=== PATIENT | female | born 2005 | race Caucasian/White ===

== ENCOUNTER 2025-07-14 17:07 | Outpatient (CLI) | payer BC, SELFPAY ==
--- OUTSIDE RECORDS SUMMARY | 2024-07-24 08:30 | XMS_ITS ---
Author Organization [facility] Address [address] [facility] [address] [place] [address] Care Team Providers Care Professor Of Floriculture Name Role Phone AnnRikkiFaviola Unavailable [phone] Results Component Value Reference Range Notes *US Pelvis Complete Transabd ominal/Vaginal (Non-OB) Reviewed date:07/25/2024 12:03:28 PM Interpretation: Performing Lab: Notes/Report: [facility] Transvaginal Pelvic Study Report Name: MELANI YEPEZ Accession/Encounter No:[id number] : 2005 Age: 18 Gender: F Race: White Study Date: Jul 24, 2024 Study Time: 01:17 PM Reading Group: Roslyn Mckeon MD Referring Group: Faviola Juarez APRN Ordering Phys: Faviola Juarez APRN Booking Officer: Jessica Lima RDMS Equipment: Affiniti 30 Study Quality: Good Procedure Code: [id number] - *US Pelvis Complete Transabdominal /Vaginal (Non-OB) Indications: Evaluation of dysmenorrhea (painful menses). AUB Risk Factors: IUCD A complete pelvic transvaginal ultrasound was performed. Sag AP Trans Volume cm cm cm ml Uterus 6.06 3.39 4.28 46.04 Right ovary: 2.68 1.66 2.77 6.45 Left ovary: 2.07 2.81 2.12 6.46 Endometrium thickness: 4.5 mm Findings: A transvaginal exam was performed. The uterus is anteverted. The uterus is 6.06 x 3.39 x 4.28 cm, with volume of 46.04 ml. The endometrium measures 4.5 mm. The endometrium appears WNL and normal. The myometrium appears homogeneous. IUD is visualized. Centrally located IUD. Unremarkable right ovary measures 2.68 x 1.66 x 2.77 cm, volume 6.45 ml. Unremarkable left ovary measures 2.07 x 2.81 x 2.12 cm, volume 6.46 ml . The cervix is 1.32 cm long. Conclusions: Uterus and ovaries appear normal. No free fluid or adnexal masses noted IUCD in situ Approved By: Roslyn Mckeon MD Approved at: July 25, 2024 12:01 PM EST Electronically Signed on Studycast MELANI YEPEZ 2024-07-24 Page 1 of 1 Imaging Center - , COUNTS INCLUDE 234 BEDS AT [facility] REASON FOR VISIT Transabdominal US? has had an IUCD.. severe cramping and heavy bleeding Encounters Encounter Location Date Provider Diagnosis [facility] [address] [facility] [address] [place] [address] 07/24/2024 Faviola Juarez Dysmenorrhea N94.6 Assessments Encounter Date Diagnosis (ICD Code) Assessment Notes Treatment Notes Treatment Clinical Notes Section Notes 07/24/2024 Dysmenorrhea (ICD-10 - N94.6) Plan Of Treatment Next Appt Details Provider Name:Roslyn Mckeon , 09/16/2025 11:15:00 AM, [address], [place], [address], Progress Notes * Melani YEPEZ ODOB:[birth year] (19 yo F)Acc No.[id number]:07/24/2024 Progress Note Patient: Melani Wasserman Provider: Yuni Juarez APRN :2005 A ge:18 Y S ex:Female Date:07/24/2024 Address:[address] [place] [address] Subjective: * Chief Complaints: * T ransabdominal US? has had an IUCD.. severe cramping and heavy bleeding Assessment: * Assessment: 1. D ysmenorrhea - N94.6 (Primary) Plan: * Treatment: Billing Information: * Procedure Codes: * Electronic signature of Kena Juarez APRN on 07/14/2025 at 05:11 PM EST Sign off status: Pending Visit Status: C HK (Check Out) * Provider: Yuni Juarez APRN Date: 09/23/2023 Generated for Sydni arndt/Kimo/eTransmitting on: 09/13/2024 05:11 PM EST
--- OUTSIDE RECORDS SUMMARY | 2024-09-08 08:15 | XMS_ITS ---
Author Organization [facility] Address [address] [place] [address] Care Team Providers Care Lease Examiner Name Role Phone AnnFaviola sands Unavailable [phone] Roslyn Mckeon Unavailable [phone] REASON FOR VISIT endo consult Encounters Encounter Location Date Provider Diagnosis [facility] [address] [facility] [address] [place] [address] 09/08/2024 Roslyn Mckeon Plan Of Treatment Next Appt Details Provider Name:Roslyn Mike , 09/16/2025 11:15:00 AM, [address], [place], [address], Progress Notes * Kayla YEPEZ ODOB:[birth year] (19 yo F)Acc No.[id number]:09/08/2024 Patient: Kayla Wasserman O Provider: Kathy Mckeon MD :2005 A ge:19 Y S ex:Female Date:09/08/2024 Address[address] [facility] Subjective: * Chief Complaints: * E ndo consult * Electronic signature of Tran Mckeon MD on 07/14/2025 at 05:11 PM EST Sign off status: Pending Visit Status: R /S (Rescheduled) * Provider: Kathy Mckeon MD Date: 0 09/08/2024 Generated for Sydni arndt/Kimo/Jazmín on: 1 09/13/2024 05:11 PM EST
--- OUTSIDE RECORDS SUMMARY | 2024-11-28 03:00 | XMS_ITS ---
Author Organization [facility] Address [address] [place] [address] Care Team Providers Care Watch Technician Name Role Phone Faviola Juarez Unavailable [phone] Roslyn Mckeon Unavailable [phone] REASON FOR VISIT HYATA HERRERA Medications Medication SIG (Take, Route, Frequency, Duration) Notes Start Date End Date Status Kyleena 19.5 MG Intrauterine Device as directed Intrauterine Active Ibuprofen 600 MG Tablet One tablet po ev constantine every 6 hours; Duration: 5 days Active Percocet 5-325 MG Tablet One tablet po E very 4 hours; Duration: 3 days 11/28/2024 Active Wellbutrin XL 150 MG Tablet Extended Release 24 Hour 1 tablet in the morning Orally Once a day Active Encounters Encounter Location Date Provider Diagnosis [facility] [address] [place] [address] 11/28/2024 Roslyn Mckeon Postoperative pain G89.18 Assessments Encounter Date Diagnosis (ICD Code) Assessment Notes Treatment Notes Treatment Clinical Notes Section Notes 11/28/2024 Postoperative pain (ICD-10 - G89.18) Plan Of Treatment Medication Medication Name Sig Start Date Stop Date Notes Ibuprofen 600 MG Tablet One tablet po ev constantine every 6 hours; Duration: 5 days Percocet 5-325 MG Tablet One tablet po E very 4 hours; Duration: 3 days 11/28/2024 Next Appt Details Provider Name:Roslyn Mckeon , 09/16/2025 11:15:00 AM, [address], [address], [address], Progress Notes * Kayla YEPEZ ODOB:[birth year] (19 yo F)Acc No.[id number]:11/28/2024 Patient: Kayla Wasserman O Provider: Kathy Mckeon MD :2005 A ge:19 Y S ex:Female Date:11/28/2024 [facility] Subjective: * Chief Complaints: * H YST DANDC, DX LAP * Medications: T akingKyleena(Levonorgestrel) 19.5 MG Intrauterine Device as directed Intrauterine Wellbutrin XL(buPROPion HCl ER (XL)) 150 MG Tablet Extended Release 24 Hour 1 tablet in the morning Orally Once a day Taking Kyleena(Levonorgestrel) 19.5 MG Intrauterine Device as directed Intrauterine Taking Wellbutrin XL(buPROPion HCl ER (XL)) 150 MG Tablet Extended Release 24 Hour 1 tablet in the morning Orally Once a day Assessment: * Assessment: 1. P ostoperative pain - G89.18 (Primary) Plan: * Treatment: Billing Information: * Procedure Codes: * Electronic signature of Tran Mckeon MD on 07/14/2025 at 05:11 PM EST Sign off status: Pending Visit Status: C HK (Check Out) * Provider: Kathy Mckeon MD Date: 0 11/28/2024 Generated for Sydni arndt/Kimo/Sanamitting on: 09/13/2024 05:11 PM EST
--- OUTSIDE RECORDS SUMMARY | 2025-04-20 05:15 | XMS_ITS ---
Author Organization [facility] Address [address] [place] [address] Care Team Providers Care Block Greaser Name Role Phone Faviola Juarez Unavailable [phone] Roslyn Mckeon Unavailable [phone] REASON FOR VISIT follow up from 12/10 Encounters Encounter Location Date Provider Diagnosis [facility] [address] [facility] [address] [place] [address] 04/20/2025 Roslyn Mckeon Plan Of Treatment Next Appt Details Provider Name:Roslyn Mike , 09/16/2025 11:15:00 AM, [address], [address], [place], [address], Progress Notes * Kayla YEPEZ ODOB:[birth year] (19 yo F)Acc No.[id number]:04/20/2025 Progress Note Patient: Kayla Wasserman O Provider: Kathy Mckeon MD :2005 A ge:19 Y S ex:Female Date:04/20/2025 Address:[address] [facility] Subjective: * Chief Complaints: * F ollow up from 12/10 * Electronic signature of Tran Mckeon MD on 07/14/2025 at 05:10 PM EST Sign off status: Pending Visit Status: R /S (Rescheduled) * Provider: Kathy Mckeon MD Date: 0 04/20/2025 Generated for Sydni Hayes/Jazmín on: 1 09/13/2024 05:10 PM EST
--- OUTSIDE RECORDS SUMMARY | 2025-05-04 07:45 | XMS_ITS ---
Author Organization [facility] Address [facility] [address] [place] [address] Care Team Providers Care Top Waddy Name Role Phone Barbara Concepcion [phone] REASON FOR VISIT Not Feeling Well Encounters Encounter Location Date Provider Diagnosis [address] [address] 05/04/2025 Barbara Concepcion Plan Of Treatment No Information Progress Notes * Kayla YEPEZDOB: [birth year] (19 yo F)Acc No.[id number]:05/04/2025 Patient: Kayla FIGUEROA Provider: Yuni Concepcion APRN :2005 A ge:19 Y S ex:Female Date:05/04/2025 External Visit ID:[id number] [facility] Subjective: * Chief Complaints: * 1 . Not Feeling Well. * Medical History: Objective: * Vitals: Assessment: Plan: * Treatment: * Billing Information: * Visit Code: * Procedure Codes: Care Plan Details* * Electronic signature of Barbara Concepcion on 07/14/2025 at 04:11 PM HAIR CLIPPER POWER Sign off status: Pending * Provider: Yuni Concepcion APRN Date: 0 05/04/2025 Generated for Sydni arndt/Kimo/Sanamitting on: 09/13/2024 04:11 PM HAIR CLIP[employer]
--- OUTSIDE RECORDS SUMMARY | 2025-07-14 17:10 | XMS_ITS | Data Portability ---
Author Organization [facility] ELENA Rodriguez [place] Address [address] [place] [address] Care Team Providers Care Rebrander Name Role Phone BUNNY MCFARLANE Primary Care Provider [phone] Assessment No assessment recorded. Plan of Treatment Reminders Order Date Submit Date Provider Last Modified By Organization Details Last Modified Time Details Appointments None recorded. Lab influenza virus A+B RNA, TORIN+probe, isolate 2024 025 count includes the [facility], [address], [place], [address], 5 17:03:22 Referral gastroenter ologist referral 2024 025 [email or web address] Not available 07:57:25 Procedures None recorded. Surgeries None recorded. Imaging None recorded. Medication Orders fluoxetine 20 mg capsule 2024 025 [facility] 7259 - [facility], [address], [place], [address], 5 10:02:45 fluoxetine 10 mg tablet 2024 025 [facility] 7259 - [facility], [address], [place], [address], 5 10:02:47 hydroxyzine HCl 25 mg tablet 2024 025 PEÑA [facility] 72 - [facility], [address], [place], [address], 5 10:02:53 fluoxetine 20 mg capsule 2024 025 [place] [address] - [facility], [address], [place], [address], 5 10:40:48 buspirone 10 mg tablet 2024 025 [place] [address] - [facility], [address], [place], [address], 5 10:19:31 fluoxetine 10 mg tablet 2024 025 [facility] 72 - [facility], [address], [place], [address], 5 13:22:24 Xofluza 80 mg tablet 2024 025 [place] [address] - [facility], [address], [place], [address], 5 12:56:12 Wellbutrin XL 150 mg 24 hr tablet, extended release 2023 024 [email or web address] [facility] 7259 - [facility], [address], [place], [address], 5 10:01:25 Patient TargetsNo targets recorded. Patient Instructions Encounter Date Encounter Id Patient Instructions Last Modified By Organization Details Last Modified Time 02/26/2025 [id number] pedi. imm. 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 Gastro-esophageal reflux disease with esophagitis Referring Physician: Bunny Mcfarlane, Pediatric Medicine, Encounter Date: 03/27/2025 Results Created Date Observation Date Name Description Value Unit Range Abnormal Flag Note LastModifiedBy Organization Detail LastModifiedTime 10/03/19 25 10/03/2024 influ ronit virus A+B RNA, TORIN+p robe, isola te Influenza A POSITI VE (Abnor mal) Not Available [facility] [address], [place], [address], 10/03/2024 16:59:50 10/03/19 25 10/03/2024 influ ronit virus A+B RNA, TORIN+p robe, isola te Influenza B Negati ve Not Available [facility] [address], [place], [address], 10/03/2024 16:59:50 10/03/19 25 10/03/2024 influ ronit virus A+B RNA, TORIN+p robe, isola te Procedural Control Valid Not Available [facility] [address], [place], [address], 10/03/2024 16:59:50 02/27/20 25 02/26/2025 pedi. imm. couns el - 2+* Unknown Analyte 3 Not Available [facility] [address], [place], [address], 02/26/2025 10:42:02 Result Notes None recorded. Problems No Known Problems Procedures Surgical History Date Name Laterality Status Provider Name and Address Organization Details Recorded Time 10/02 Tympanogram completed FREEDOM LOGAN, AUD [address] [place], [address] , [facility] 15:32:31 10/02 Audiogram completed FREEDOM LOGAN AUD [address] [place], [address] , [facility] 3 15:32:30 Ears/Nose/Throat Surgery completed Marimar Leija [facility] 3 14:50:40 esophagogastroduodenoscopy completed Marimar [facility] 3 14:51:16 Ear Tube completed Not Available [employer] 5 09:54:13 Imaging Results None recorded. Procedure Notes None recorded. Medical Equipment None Reported. Allergies Allergen ID Allergen Name Allergen Category Reaction Reaction Severity Criticality Documentation Date Start Date Code Code System Note Provider Name and Address Organization Details Recorded Time 406831 Product containin g penicilli n (product) medicatio n Not available Not available Not available 07/28/20162012 12594 8001 SNOMED Comme nt: Creat ed By: Venkata callaway Sean is;Cr eated Date: 2012 10:55 :42 AM; Not Available [facility] 6 09:19:04 [id number] buspirone medicatio n rash mild low 02/27/20252024 1827 [facility] 5 10:12:30 Medications Name Sig Start Date Stop Date Status Note LastModified by Organization Details LastModified Time fluoxetine 10 mg tablet Take 1 tablet every day by oral route for 30 days. 2024 active Not Available Not Available Not Avai lable oseltamivir 75 mg capsule Take 1 capsule twice a day by oral route for 5 days. 01/27 completed Not Available Not Available Not Available buspirone 10 mg tablet Take 1 tablet twice a day by oral route for 30 days. 02/27 completed Not Available Not Available Not Available hydroxyzine HCl 25 mg tablet Take 1 tablet every day by oral route at bedtime for 30 days. 2024 active Not Available Not Available Not Avai lable cefdinir 300 mg capsule Take 1 capsule twice a day by oral route for 10 days. 07/15 completed Not Available Not Available Not Available fluoxetine 20 mg capsule Take 1 capsule every day by oral route for 30 days. 2024 active Not Available Not Available Not Avai lable bupropion HCl XL 150 mg 24 hr tablet, extended release Take 1 tablet by mouth once daily 02/26 completed Not Available Not Available Not Available Wellbutrin XL 300 mg 24 hr tablet, extended release Take 1 tablet every day by oral route. 05/27 completed Not Available Not Available Not Available Xofluza 80 mg tablet Take 1 tablet every day by oral route for 1 day. 01/27 completed Not Available Not Available Not Available Vitals Date Recorded Body weight Body temperature Provider N steve and Address Organization Details Last Updated DateTime 10/03/2024 39840.83 g 97.9 [degF] Yu Rowley [facility] 10/03/2024 16:34:44 Date Recorded Body weight Provider Name an d Address Organization Details Last Updated DateTime 01/27/2025 32951.52 g Candy Nixon [facility] 01/27/2025 12:56:11 Date Recorded Body height Body mass index (BMI) Body mass index (BMI) [Percentile] Per age and sex Body weight Heart rate Systolic And Diastolic Provider Name and Address Organization Details Last Updated DateTime 167.64 cm 29 kg/m2 91 % 59766.1 9 g 72 /min 114/72 mm[Hg] Aniyah May [facility] 10:00:43 Date Recorded Body height Body mass index (BMI) Body mass index (BMI) [Percentile] Per age and sex Body weight Body temperature Provider Name and Address Organization Details Last Updated DateTime 167.64 cm 28.5 kg/m2 90 % 26897.0 5 g 98 [degF] Jami Byrd [facility] 09:42:47 Date Recorded Body weight Provider Name an d Address Organization Details Last Updated DateTime 07/15/2024 65293.71 g Александр Workman [facility] Cli gabriela 07/15/2024 10:44:29 Social History Question Answer Notes LastModified by Organizat ion Details LastModified Time Tobacco Smoking Status Never Smoker Mraimar Leija [facility] 10/02/2022 14:50:19 What Was The Date Of Your Most Recent Tobacco Screening? 10/02/2022 Information not available 10/02/2022 Sex: Unknown Functional Status Question Answer Note LastModified by Organizat ion Details LastModified Time Do you use any illicit or recreational drugs? No Information not available 10/02/2022 Do you or have you ever used any other forms of tobacco or nicotine? No Information not available 10/02/2022 What is your level of alcohol consumption? None Information not available 10/02/2022 Mental Status None recorded. Family History Relationship Description Onset Age of this Age Resolved Age Notes LastModified by Organization Details LastModified Time Mother Disorder of thyroid gland API-27 Not available 2024 09:54:13 Father Hypertensive disorder Not available 2022 14:49:47 Brother Asthma Not available 0 10/02/2022 14:50:11 Medical History Condition Response Anxiety Disorder Y Depression Y Gynecological History Statement/Question Response Menses Monthly Y Date of First period 06/14/2015 Abnormal Periods N Obstetrics History GPAL:G 0 P 0 0 0 0 Immunizations Vaccine Type Date Status Note Provider Nam e and Address Organization Details Recorded Time HPV9 7 completed Aniyah May [facility] 02/26/2025 10:03:48 HPV9 6 completed Aniyah May [facility] 02/26/2025 10:03:48 IPV 8 completed Aniyahmitali May [facility] 02/26/2025 10:03:48 MMR 6 completed Aniyahmitali May [facility] 02/26/2025 10:03:48 MMR 8 completed Aniyah May [facility] 02/26/2025 10:03:48 COVID-19, mRNA, LNP-S, PF, 30 mcg/0.3 mL dose 1 completed Aniyah May [facility] 02/26/2025 10:03:48 COVID-19, mRNA, LNP-S, PF, 30 mcg/0.3 mL dose 1 completed Naiyahmitali May [facility] 02/26/2025 10:03:48 pneumococcal conjugate PCV 7 5 completed Aniyah May [facility] 02/26/2025 10:03:48 pneumococcal conjugate PCV 7 5 completed Aniyah May [facility] 02/26/2025 10:03:48 pneumococcal conjugate PCV 7 5 [facility] 10:03:48 pneumococcal conjugate PCV 7 5 completed Aniyah Lalo [facility] 02/26/2025 10:03:48 influenza, unspecified formulation 3 completed Aniyah Lalo [facility] 02/26/2025 10:03:48 influenza, unspecified formulation 1 completed Aniyah Lalo [facility] 02/26/2025 10:03:48 influenza, unspecified formulation 2 completed Aniyah May [facility] 02/26/2025 10:03:48 influenza, unspecified formulation 5 completed [facility] 02/26/2025 10:03:48 influenza, unspecified formulation 3 completed Aniyah Lalo [facility] 02/26/2025 10:03:48 influenza, unspecified formulation 5 completed [facility] 02/26/2025 10:03:48 influenza, unspecified formulation 6 completed [facility] 02/26/2025 10:03:48 influenza, unspecified formulation 7 completed [facility] 02/26/2025 10:03:48 influenza, unspecified formulation 4 completed [facility] 02/26/2025 10:03:48 influenza, unspecified formulation 5 completed [facility] 02/26/2025 10:03:48 influenza, unspecified formulation 8 completed Aniyahmitali May [facility] 02/26/2025 10:03:48 influenza, unspecified formulation 6 completed Aniyahmitali May [facility] 02/26/2025 10:03:48 influenza, unspecified formulation 9 completed Aniyahmitali May [facility] 02/26/2025 10:03:48 Tdap 5 completed Aniyah May [facility] 02/26/2025 10:03:48 varicella 5 completed Aniyahmitali May [facility] 02/26/2025 10:03:48 varicella 8 completed Aniyahmitali May [facility] 02/26/2025 10:03:48 Hep B, unspecified formulation 4 completed Aniyah May [facility] 02/26/2025 10:03:48 Hib (PRP-OMP) 6 completed Aniyahmitali May [facility] 02/26/2025 10:03:48 Hib (PRP-OMP) 5 completed Aniyahmitali May [facility] 02/26/2025 10:03:48 Hib (PRP-OMP) 5 completed Aniyahmitali May [facility] 02/26/2025 10:03:48 Hib (PRP-T) 5 completed Aniyah May [facility] 02/26/2025 10:03:48 Meningococcal MCV4O 0 completed Aniyahmitali May [facility] 02/26/2025 10:03:48 Meningococcal MCV4O 5 completed Aniyahmitali May [facility] 02/26/2025 10:03:48 DTaP, unspecified formulation 6 completed Aniyahmitali May [facility] 02/26/2025 10:03:48 DTaP, unspecified formulation 8 completed Aniyahmitali May [facility] 02/26/2025 10:03:48 DTaP-Hep B-IPV 5 completed Aniyah May null, [facility] 02/26/2025 10:03:48 DTaP-Hep B-IPV 5 completed Aniyah May null, [facility] 02/26/2025 10:03:48 DTaP-Hep B-IPV 5 completed Aniyah May null, [facility] 02/26/2025 10:03:48 Influenza, split virus, quadrivalent, PF 8 completed Aniyah May null, [facility] 02/26/2025 10:03:48 Influenza, split virus, quadrivalent, PF 7 completed Aniyah May null, [facility] 02/26/2025 10:03:48 Influenza, split virus, quadrivalent, PF 2 [facility] 02/[facility]25 10:03:48 Influenza, split virus, quadrivalent, PF 9 completed Aniyah May null, [facility] 02/26/2025 10:03:48 Influenza, split virus, quadrivalent, PF 0 completed Aniyah May null, [facility] 02/26/2025 10:03:48 Influenza, split virus, quadrivalent, PF 1 completed Aniyah May null, [facility] 02/26/2025 10:03:49 Hep A, unspecified formulation 6 completed [facility] 02/26/2025 10:03:49 Hep A, unspecified formulation 6 completed Aniyah May null, [facility] 02/26/2025 10:03:49 Influenza, split virus, quadrivalent, PF 4 completed Aniyah May null, [facility] 02/26/2025 10:04:07 Influenza, split virus, trivalent, PF 4 completed BUNNY MCFARLANE MD [address] [place] [address], [phone], [facility] 05/27/2024 17:08:24 Tdap 5 completed Elan Llamas [facility] 02/26/2025 10:41:15 Past Encounters Encounter ID Performer Location Encounter Start Date Encounter Closed Date Diagnosis/Indication Diagnosis SNOMED-CT Code Diagnosis ICD10 Code Diagnosis IMO Codes Diagnosis Note [id number] FREEDOM IVEYMARIA DOLORES LOGAN, AUD [facility] [address] [place] [address] 10/02/2022 14:25:12 10/02/2022 15:53:33 Bilateral tinnitus 4372014444 102 H93.13 Sensorineu ral hearing loss of bilateral ears 249402899 H90.3 [id number] YING DAY, CAR REPOSSESSOR [facility] [address] [place] [address] 10/02/2022 15:02:55 10/09/2022 15:42:15 Hearing examination 465611333 Z01.10 10/02/2022- Audiogram results reviewed. Type A tymps bilaterall y with 100% WDS. Bilateral tympanosclerosis 5294862543 7181273 H74.03 10/02/2022- Slightly worse on the left. Deviated nasal septum 12 8898758 J34.2 [id number] YA BUTLER III, MD [facility] [address] [place] [address] 10/02/2022 15:57:47 10/02/2022 16:46:51 Hearing examination 280275533 Z01.10 10/02/2022- Audiogram results reviewed. Type A tymps bilaterall y with 100% WDS. Bilateral tympanosclerosis 0182091338 4553663 H74.03 10/02/2022- Slightly worse on the left. Deviated nasal septum 12 9996999 J34.2 [id number] BUNNY MCFARLANE MD [facility] [address] [place] [address] 05/27/2024 13:58:51 05/27/2024 14:20:07 Active immunization 51577976 Z23 Acute righ t otitis media 586560170 H66.91 Otitis media (ear infection) 1. Tylenol or Ibuprofen (the latter only if the patient is at least 6 months old) as directed prn for pain. 2. Call if worsens or if not cleared up after antibiotic s. Acute uppe r respiratory infection 09686126 J06.9 1. Discussed upper respirator y infection symptoms 2. Discussed supportive care 3. Call if worsens [id number] BUNNY MCFARLANE MD [address] [employer],[address] [address] 07/15/2024 10:41:08 07/15/2024 11:02:01 Allergic rhinitis caused by animal hair and dander 1515341795 52000 J30.81 Discussed: secondary to the cat living in her apartment. I recommende d that Kayla move out of her apartment for medical/he alth reasons due to allergy symptoms. She needs to be released from her lease. Anxiety 39653175 F41.9 1. Discussed anxiety 2. Recommende d counseling - numbers provided 3. RAS-7 reviewed 4. Discussed medication and side effects 5. Discussed the risk of suicidal ideations with the prescribed and related medication s 6. Advised to call for concerns, evelia. if not better in 2 weeks Depressive disorder 2897 9007 F32.A 1. PHQ-9 reviewed and depression discussed2 . Discussed medication including the chance for suicidal ideations with it and similar ones3. Denies suicidal ideations4 . Discussed follow up appointmen ts5. Discussed counseling 6. Call for concerns, evelia. if not better in 2 weeks [id number] BUNNY MCFARLANE MD [facility] [address] [facility],[address] [address] 10/03/2024 16:29:11 10/03/2024 17:04:06 Influenza caused by Influenza A virus 699816055 J09.X2 Tylenol or Ibuprofen (if at least 6 months of age) as directed. Plenty of rest and fluids. RTC PRN worsening. [id number] BUNNY MCFARLANE MD [facility] [address] [facility],[address] [address] 01/27/2025 12:48:48 01/27/2025 13:22:37 Anxiety 96139991 F41.9 42097 1. Discussed anxiety 2. Recommende d counseling : she is isolating herself ad is afraid to eat for fear of vomiting. SHe estimates only eating 700 kcal a day. 3. RAS-7 reviewed 4. Discussed medication and side effects 5. Discussed the risk of suicidal ideations with the prescribed and related medication s 6. Advised to call for concerns. 7. Recheck in a month. [id number] [facility] [address] [facility] [address] [place] [address] 02/26/2025 09:54:12 02/26/2025 10:38:35 General examination of patient 228541419 Z00.00 [id number] 1. Discussed age appropriat e issues and reviewed immunizati ons2. Discussed high school/col lege/adult issues3. Follow up yearly for well visits4. PHQ-4 reviewed Anxiety 16504727 F41.9 42553 1. Discussed anxiety 2. Recommende d counseling : she is isolating herself ad is afraid to eat for fear of vomiting. She knows that this is an irrational fear. 3. RAS-7 reviewed 4. Discussed medication and side effects, incl. risk of serotonin syndrome /c Buspirone added. Will start /c a lower dose of this. 5. Discussed the risk of suicidal ideations with the prescribed and related medication s 6. Advised to call for concerns. 7. Recheck in a month. Abnormal weight loss 267 704392 R63.4 [id number] Discussed continuing counseling for this. [id number] MD [facility] [address] [facility] [address] [place] [address] 03/27/2025 09:38:13 03/27/2025 09:58:11 Anxiety 76359938 F41.9 08966 1. Discussed anxiety 2. RAS-7 reviewed 3. Discussed medication and side effects: she sweats a lot /c the Fluoxetine but is OK /c this. 4. Discussed the risk of suicidal ideations with the prescribed and related medication s 5. RTC 6 months Gastro-eso phageal reflux disease with esophagitis 766829147 K21.00 [id number] Cont. current care. Will refer back to Dr. Gasca. Health Concerns Section Related Observation LastModified by Organization Detai ls LastModified Time None Recorded Concern Status LastModified by Organization Details LastModified Time None Recorded Advance Directives Directive None Recorded Payers Insurance Date Sequence Insurance Name Policy Number Policy Lozada Covered Member ID Lozada Member ID Guarantor Name 04/01/2025 1 [facility] ([facility] [id number] A Ernesto Sharma [id number] Kayla Sharma Notes Date Note Type Note Provider Name and Address Organization Details Recorded Time 07/15/2024 text/html ROS as noted in the HPI RecheckConcerns: Cat allergy , anxiety , depression patient would like to restart wellbutrin REPORTED BY: self RELATIONSHIP:scale 12 Pt is in an apartment with 2 other roommates. She is in college. One of her roommates insisted on bringing her cat to live with them despite the Pt being (and having tested) allergic to cats. Since the cat has been in the apartment with them Kayla has had swelling and redness of her eyes in the morning, chronic nasal congestion, and a chronic cough. SShe has been on multiple mediations for this including Claritin, Benadryl Allergy, and Flonase, but they are not helping her symptoms. Kayla has also had increased anxiety and depression, which her cat allergy symptoms are no doubt exacerbating. She would like to go back on Wellbutrin. BUNNY MCFARLANE MD [address] [place] [address], [phone], [facility] 07/15/2024 17:31:32 10/03/2024 text/html ROS as noted in the HPI REPORTED BY: ernesto RELATIONSHIP: dad pt reports yesterday she started with body aches, chills, BROWN, congestion, wet cough. 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 Afebrile. 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 She started worrying about her food getting contaminated so she stopped eating at work sometime after her last visit. The Wellbutrin XL 150 mg QD that she was taking would make her sick to her stomach and she had trouble eating /c it. SHe became afraid that she would vomit if she ate in public. SHe is worried about how much weight she has lost and doesn't want to lose anymore. He counselor from [facility] left and she hasn't found another one. BUNNY MCFARLANE MD [address] [place], [address], [facility] 01/27/2025 17:11:33 02/26/2025 text/html ROS as noted in the HPI 19 year cpx/med recheckconcerns: would like to talk about increasing dosage or adding another med for OCD and anxiety, prozac is working well for her depression. Has trouble sleeping or staying asleep with prozacIs your child entering kindergarten, 6th grade or will your child be attending a new school? NOWill your child play sports for a middle school or high school? NODo you need an immunization certificate? NOWould you like any medications refilled? NODoes our child have a dental home? YESDo you consider your child in good health? Yes Does your child have a serious illness or medical condition? No Has your child had serious injuries or accidents? No Has your child had surgery of any kind? Yes Has your child ever been hospitalized overnight? No Is our child allergic to any medicines or drugs? Yes Reported by: selfRelation: self Well Visit ROSDo you consider your child to be in good health? Yes Does your child have a serious illness or medical condition? No Has your child ever been hospitalized overnight? No Has your child had a serious injury or accident? No Imported from [employer] on 02/26/2025 Pt feels much better from a depression standpoint but is still very anxious about vomiting. She started seeing a counselor for this. She would like something in addition for anxiety. Losing some hair. Trying to eat more protein. She does not want to work out until her weight stabilizes. She tries to only eat every 6 hours. BUNNY MCFARLANE MD [address] [place], [address], [facility] 02/26/2025 17:03:13 03/27/2025 text/html ROS as noted in the HPI Med checkPt takes fluoxetine 10mg + 20mg for a total of 30mg qd.Doing well, no issuesAlso takes hydroxyzine 25mg qhs. Often just takes 1/2 tablet.Needs refills for future.Also started taking 20mg omeprazole to help with reflux and it's helping. Needs new GI referral, has been to long since pt last saw her GI as she is new patient .Filled out RAS-7 in house. Reported by : Self Pt is doing well on total of 30 mg Fluoxetine a day. She denies any suicidal ideations. Her swallowing problems have improved dramatically on Omeprazole 20 mg QD. She would like to see Chivo Gasca again for her GERD. Her dad has it as well. SHe talked to her counselor about meal prep, so she is eating better. Workign out at the gym and is trying to build muscle. BUNNY MCFARLANE MD [facility] [place], [address], [facility] 03/27/2025 17:30:27 OBGyn Episode No OBEpisode recorded.
--- OUTSIDE RECORDS SUMMARY | 2025-07-14 17:10 | XMS_ITS | Data Portability ---
Author Organization [facility] AD[facility] Address [address] [place] [address] Care Team Providers Care Courier Name Role Phone IGLESIA MCFARLANE Primary Care Provider Assessment Encounter Date Assessment Date Assessment LastModified by Organization Details LastModified Time 06/29/2022 06/29/2022 16-year-old female with nausea, vomiting, and loose BMs for the past 3 days, likely due to viral gastroenteriti s. Recommended she maintain good oral hydration and practice good hand hygeine. Will treat her nausea with Zofran as needed. Instructed them to call if her symptoms due not subside after 7-10 days. [email or web address] Not available 06/29/2022 12:25:03 Plan of Treatment Reminders Order Date Submit Date Provider Last Modified By Organization Details Last Modified Time Details Appointments None recorded. Lab None recorded. Referral None recorded. Procedures None recorded. Surgeries None recorded. Imaging None recorded. Medication Orders ondansetron 4 mg disintegrat ing tablet 2021 022 [facility] - [facility], [address] [place], [address], 12:22:17 Patient TargetsNo targets recorded. Patient InstructionsNo instructions recorded. Reason for Referral None Reported. Problems Name Problem SNOMED Code Status Onset Date Resolution Date Notes Provider Name and Address Organization Details Recorded Time Acute gastroenteriti s 09339093 Active 2021 Giuseppe Hale PA-C [address], [place], [address] , [facility] & [place] 12:20:31 Abdominal pain 94432079 Active 2021 Giuseppe Hale PA-C [address] [facility], [place], [address] , [facility] & [place] 12:20:36 Problem Notes None recorded. Medical Equipment None Reported. Medications Name Sig Start Date Stop Date Status Note LastModified by Organization Details LastModified Time ondansetron 4 mg disintegrating tablet Take 1 tablet every 6 hours as needed for nausea active Not Available Not Available No t Available escitalopram 10 mg tablet TAKE 1 TABLET BY MOUTH ONCE DAILY active Not Available Not Available No t Available Lo Loestrin Fe 1 mg-10 mcg (24)/10 mcg (2) tablet TAKE 1 TABLET BY MOUTH ONCE DAILY active Not Available Not Available No t Available Vitals Date Recorded Heart rate Systolic And Diastolic Provider Name and Address Organization Details Last Updated DateTime 06/29/2022 104 /min 151/107 mm[Hg] Ryanne Calderon [facility] & [place] 06/29/2022 11:47:12 Social History None recorded. Functional Status None recorded. Mental Status None recorded. Family History Relationship Description Onset Age of this Age Resolved Age Notes LastModified by Organization Details LastModified Time Father Hypertensive disorder pt. added direct ly (06/28) [email or web address] Not available 06/28/2022 16:56:48 Maternal Grandmother Hypertensive disorder pt. added direct ly (06/28) [email or web address] Not available 06/28/2022 16:56:48 Maternal Grandfather Hypertensive disorder pt. added direct ly (06/28) [email or web address] Not available 06/28/2022 16:56:48 Maternal Grandfather Myocardial infarction pt. added direct ly (06/28) [email or web address] Not available 06/28/2022 16:57:13 Paternal Grandmother Hypertensive disorder pt. added direct ly (06/28) [email or web address] Not available 06/28/2022 16:56:48 Paternal Grandfather Hypertensive disorder pt. added direct ly (06/28) [email or web address] Not available 06/28/2022 16:56:48 Maternal Aunt Hypertensive disorder pt. added direct ly (06/28) [email or web address] Not available 06/28/2022 16:56:48 Medical History No medical history recorded. Gynecological HistoryNo gynecological history recorded. Obstetrics History GPAL:G 0 P 0 0 0 0 Past Encounters Encounter ID Performer Location Encounter Start Date Encounter Closed Date Diagnosis/Indication Diagnosis SNOMED-CT Code Diagnosis ICD10 Code Diagnosis IMO Codes Diagnosis Note [id number] Giuseppe Hale PA-C [facility] [address] [facility] [address] [place] [address] 06/29/2022 11:29:59 06/29/2022 12:13:12 Acute gastroenteritis 22299683 K52.9 Abdominal pain 11969854 R10.9 Health Concerns Section Related Observation LastModified by Organization Detai ls LastModified Time None Recorded Concern Status LastModified by Organization Details LastModified Time None Recorded Advance Directives Directive None Recorded Payers Insurance Date Sequence Insurance Name Policy Number Policy Lozada Covered Member ID Lozada Member ID Guarantor Name 09/25/2020 1 [id number] [id number] Ernesto Sharma [id number] Ernesto Sharma 06/28/2022 1 [place] [id number] A Ernesto Sharma [id number] Ernesto Sharma Notes Date Note Type Note Provider Name and Address Organization Details Recorded Time 06/29/2022 text/html Very pleasant 16-year-old female who presents today with her mother for evaluation of epigastric pain, nausea, vomiting, and loose stools for the past 3 days. She denies any close contacts with similar symptoms. She denies recent antibiotic use. She had an episode of bilious vomiting 2 days ago and her appetite has been poor overall. This is somewhat improved today. She is keeping fluids down. She reports 1 loose stool daily for the past few days. She had an EGD performed by Dr. Gasca in 2017 with finding of gastritis. She denies fever, chills, rigors, cough, headache, sore throat, or nasal congestion. She reports mild chronic abdominal discomfort for the past few years. This seems to be worse since the loss of her grandmother a couple of years ago. Giuseppe Hale PA-C [address] [facility], [place], [address], [place] - [facility] - [place] & [place] 06/29/2022 12:25:16 OBGyn Episode No OBEpisode recorded.
--- OUTSIDE RECORDS SUMMARY | 2025-07-14 17:11 | XMS_ITS | Patient Health Record ---
Author Organization [facility] Address [address] [place] [address] Care Team Providers Care Civil Engineering Manager Name Role Phone Faviola Juarez Unavailable [phone] Roslyn Mckeon Unavailable [phone] Allergies Allergen (clinical drug ingredient) Drug/Non Drug Allergy documented on EMR Reaction Allergy Type Onset Date Status penicillin V PENICILLIN V POTASSIUM Unspecified Drug Allergy 04/29/2020 Active Results Component Value Reference Range Flag Notes CBC (NO DIFF) Reviewed date:09/15/2024 07:38:14 AM Interpretation:Negative Performing Lab: Notes/Report: WBC, CORRECTED 5.69 3.40-10.80 10*3/mm3 ERYTHROCYTES IN BLOOD BY AUTOMATED COUNT 4.22 3.77-5.28 10*6/mm3 HEMOGLOBIN (G/DL) IN BLOOD 13.4 12.0-15.9 g/dL HEMATOCRIT (%) BY AUTOMATED COUNT 39.3 34.0-46.6 % RBC MCV (FL) BY AUTOMATED COUNT 93.1 79.0-97.0 fL RBC MCH (PG) BY AUTOMATED COUNT 31.8 26.6-33.0 pg RBC MCHC (G/DL) BY AUTOMATED COUNT 34.1 31.5-35.7 g/dL RBC RDW (%) BY AUTOMATED COUNT 11.8 12.3-15.4 % L RDW-SD 40.1 37.0-54.0 fl MEAN PLATELET VOLUME (FL) BY AUTOMATED COUNT 10.3 6.0-12.0 fL PLATELETS BY AUTOMATED COUNT 352 140-450 10*3/mm3 Lab specimens received at a [facility].?See result details for the performing location information. TSH RFX ON ABNORMAL TO FREE T4 Reviewed date:09/15/2024 07:38:14 AM Interpretation:Normal Performing Lab: Notes/Report: THYROID STIMULATING HORMONE (TSH) UIU/ML 1.720 0.270-4.20 uIU/mL Lab specimens received at a [facility].?See result details for the performing location information. TISSUE PATHOLOGY EXAM Reviewed date:12/02/2024 01:12:55 PM Interpretation:Benign endometrium Performing Lab: Notes/Report: LAB AP CASE REPORT Surgical Pathology Report Case: [id number] LAB AP CASE REPORT Authorizing Provider : Roslyn Mckeon MD Collected: 11/28/2024 08:33 AM LAB AP CASE REPORT Ordering Location: [facility] Received: 11/28/2024 11:02 AM LAB AP CASE REPORT LABORATORY LAB AP CASE REPORT Pathologist: Yosef Helms MD LAB AP CASE REPORT Specimen: Endometria l Curettings LAB AP CLINICAL INFORMATION Primary dysmenorrhea LAB AP FINAL DIAGNOSIS ENDOMETRIAL CURETTAGE: LAB AP FINAL DIAGNOSIS Secretory pattern endometrium with stromal decidualization and papillary syncytial metaplasia without atypia. LAB AP FINAL DIAGNOSIS Electronically si gned by Yosef Helms MD on 12/01/2024 at 1546 EDT [facility] GROSS DES[facility] 1. Endometrial Curettings. [facility] AP GROSS DESCRIPTION Received in formalin labeled endometrial curettings is a 2.5 x 1.5 x 0.2 cm aggregate of fragmented red tissue, filtered and submitted entirely in a single cassette. [facility] LAB AP MICROSCOPIC DESCRIPTION The slides are reviewed and demonstrate histopathologic features supporting the above rendered diagnosis. Lab specimens received at a [facility].?See result details for the performing location information. *US Pelvis Complete Transabd ominal/Vaginal (Non-OB) Reviewed date:07/25/2024 12:03:28 PM Interpretation: Performing Lab: Notes/Report: [facility] Transvaginal Pelvic Study Report Name: MELANI YEPEZ Accession/Encounter No:[id number] : 2005 Age: 18 Gender: F Race: White Study Date: Jul 24, 2024 Study Time: 01:17 PM Reading Group: Roslyn Mckeon MD Referring Group: Faviola Juarez APRN Ordering Phys: Faviola Juarez APRN Register Clerk: Jessica Lima RDMS Equipment: Affiniti 30 Study [...] PM EST Electronically Signed on Studycast MELANI MARLENI 2024-07-24 Page 1 of 1 Imaging Center - , [facility] [address] Reason For Referral No Information Medications Medication SIG (Take, Route, Frequency, Duration) Notes Start Date End Date Status Kyleena 19.5 MG Intrauterine Device as directed Intrauterine placed 11/2022 Active hydrOXYzine HCl PRN Acti ve Sprintec 28 0.25-35 MG-MCG Tablet 1 tablet Orally Once a day; Duration: 84 days Active pills only. Skip placebo. 05/11/2025 Active Omeprazole Active PROzac Active Ibuprofen 600 MG Tablet One tablet po every every 6 hours; Duration: 5 days Active Social History Tobacco Use: Social History Observation Description Date Details (start date - stop date) Never Smoker NA - NA Social History Sexual History: Social Info Question Answer Notes Sexual History Had sex in the past 12 months (vaginal, oral, or anal)? No Drugs/Alcohol: Social Info Question Answer Notes Drugs Have you used drugs other than those for medical reasons in the past 12 months? No Steroid Use Have you used anabolic (body building) st eroids? No Alcohol Screen Did you have a drink containing alcohol in the past year? No Points 0 Interpretation Negative Tobacco Use: Social Info Question Answer Notes Tobacco Use/Smoking Are you a nonsmoker Additional Details Category Social Info Options Details Miscellaneous: Sexually active: SEXUAL AC TIV: Never Problems Problem Type SNOMED Code ICD Code Onset Dates Problem Status W/U Status Risk Notes Problem Pain in female pelvis (249872919) Pelvic pain in female (R10.2) Active confirmed Problem Menorrhagia (finding) (258238050) Menorrhagia, premenopausal (N92.4) Active confirmed Problem Endometriosis (122814545) Endometriosis determined by laparoscopy (N80.9) Active confirmed Problem Dysmenorrhea (070997986) Dysmenorrhea (N94.6) Active confirmed Vital Signs Blood pressure diastolic 60 mm Hg 05/11/2025 BMI Percentile 96.03 % 07/24/2024 Height 67 in 05/11/2025 Blood pressure systolic 112 mm Hg 05/11/2025 Weight 171.6 lbs 05/11/2025 BMI 26.87 kg/m2 05/11/2025 Encounters Encounter Location Date Provider Diagnosis [facility] [address] [facility] [address] [place] [address] 05/12/2025 Roslyn Fuson Endometriosis determined by laparoscopy N80.9 [facility] [address] [facility] [address] [place] [address] 05/11/2025 Roslyn Fuson Endometriosis determined by laparoscopy N80.9 and Pelvic pain in female R10.2 [facility] [address] [facility] [address] [place] [address] 07/24/2024 Faviola Juarez Dysmenorrhea N94.6 [facility] [address] [facility] [address] [place] [address] 12/10/2024 Roslyn Fuson Endometriosis determined by laparoscopy N80.9 [facility] [address] [place] [address] 09/12/2024 Roslyn Fuson Menorrhagia, premenopausal N92.4 and Pelvic pain in female R10.2 [facility] [address] [place] [address] 07/24/2024 Faviola Ann Dysmenorrhea N94.6 [facility] [address] [place] [address] 11/28/2024 Roslyn Mckeon Postoperative pain G89.18 Assessments Encounter Date Diagnosis (ICD Code) Assessment Notes Treatment Notes Treatment Clinical Notes Section Notes 07/24/2024 Dysmenorrhea (ICD-10 - N94.6) 07/24/2024 Dysmenorrhea (ICD-10 - N94.6) Kyleena in correct location today confirmed by US Discussed Mirena as possibility for better bleeding control Considering her symptoms and FH, she desires to RTC fo discuss possible dx lap 09/12/2024 Pelvic pain in female (ICD-10 - R10.2) 09/12/2024 Menorrhagia, premenopausal (ICD-10 - N92.4) 11/28/2024 Postoperative pain (ICD-10 - G89.18) 12/10/2024 Endometriosis determined by laparoscopy (ICD-10 - N80.9) Patient reports minimal cramping with first menses following fulguration of endometriosis. Plan to continue Kyleena. Follow up 4-6 months. May consider OCP if cramping returns. Precautions reviewed. Total time spent caring for the patient today 20 minutes. This includes time spent before the visit reviewing the chart, time spent during the visit, time spent after the visit on documentation, and does not include procedure or preventative care time. 05/11/2025 Pelvic pain in female (ICD-10 - R10.2) 05/11/2025 Endometriosis determined by laparoscopy (ICD-10 - N80.9) Trial of continuous OCP suppression. Follow up 4 months. Precautions reviewed. 05/12/2025 Endometriosis determined by laparoscopy (ICD-10 - N80.9) 09/12/2024 Other Patient has failed attempts at conservative management. Plan to proceed with hysteroscopy D and C with diagnostic laparoscopy. Patient's diagnosis and treatment options were again reviewed, including lesser invasive options. The risks, benefits, and likely outcomes of each were reviewed. The patient confirms her desire to proceed with Diagnostic Laparoscopy and Hysteroscopy D&C. We discussed possible findings including adhesions, endometriosis as well as normal findings. We discussed the general treatment technique and follow up for each. Recognized risks of this procedure are those of any laparoscopic surgical procedure including anesthesia, bleeding, infection, damage to bowel or bladder, uterine perforation, and neurologic damage. She was also advised that bleeding, bowel injury, bladder injury or ureteral injury may not be obvious at the time of surgery and that she would need to be vigilant to call my office YOLANDA with any increasing abdominopelvic pain or any fever in the two weeks following surgery. All the patient's questions were answered, and she was advised to call with any other questions that she may have prior to the operation. Plan Of Treatment Next Appt Details Provider Name:Roslyn Mckeon , 09/16/2025 11:15:00 AM, [address], [facility] [address], [place], [address], Insurance Providers Payer Name Payer Address Payer Phone Subscriber Number Group Number Insured Name Patient Relationship to Insured Coverage Start Date Coverage End Date Miguelito PAGEO [address] [place] [address] [id number] Ernesto Sparks Child - Insured has Financial Responsibility Medical (General) History Surgical History Surgery Date(Month/Year) EGD - 2017 Hipe scope - 2019 Laparoscopy, fulg of endo, hysteroscopy, D&C 11/2024
--- OUTSIDE RECORDS SUMMARY | 2025-07-14 17:11 | XMS_ITS | Patient Health Record ---
Author Organization [facility] Address [address] [place] [address] Care Team Providers Care Cosmetics And Toiletries Salesperson Name Role Phone Barbara Concepcion Unavailable [phone] Garrick Pia Unavailable [phone] Mio Smiley Unavailable [phone] Allergies Allergen (clinical drug ingredient) Drug/Non Drug Allergy documented on EMR Reaction Allergy Type Onset Date Status Penicillin rash Drug Allergy Active Results Component Value Reference Range Notes Flu/COVID Rapid Antigen (IH) Reviewed date:05/05/2025 03:25:47 PM Interpretation:Positive Performing Lab: Notes/Report: Positive Flu A negative Negative - Positive Flu B negative Negative - Positive SARS CoV 2 positive Negative - Positive Reason For Referral No Information Medications Medication SIG (Take, Route, Frequency, Duration) Notes Start Date End Date Status PROzac 20 MG 1 capsule Orally Onc e a day Active Omeprazole 40 MG 1 capsule 1/2 to 1 h our before morning meal Orally Once a day Active hydrOXYzine HCl 25 MG 1 tablet as needed Orally Once a day Active Claritin 10 MG 1 tablet Orally Once a day Active Kyleena 19.5 MG as directed Intrauterine Active Cefdinir 250 MG/5ML 5 ml orally BID; Dur ation: 10 day(s) 04/18/2015 Not-Taking Social History Tobacco Use: Social History Observation Description Date Details (start date - stop date) Never Smoker NA - NA Tobacco Control (Standard) Question Answer Notes Tobacco use: Nonsmoker AUDIT-C (Standard) Question Answer Notes Did you have a drink containing alcohol in the p ast year? No Points 0 Interpretation Negative Problems Problem Type SNOMED Code ICD Code Onset Dates Problem Status W/U Status Risk Notes Problem Acute constipation (081423225) Acute constipation (K59.00) Active confirmed Problem Overweight (315296985) Overweight (BMI 25.0-29.9) (E66.3) Active confirmed Problem Anxiety (67443907) Anxiety (F41.9) Active confirmed Vital Signs Temperature 97.9 degrees Fahrenheit 04/27/2025 Respiratory Rate 18 /min 05/05/2025 Blood pressure diastolic 76 mm Hg 05/05/2025 Height 66 in 05/05/2025 Blood pressure systolic 116 mm Hg 05/05/2025 Weight 160 lbs 05/05/2025 BMI 25.82 kg/m2 05/05/2025 Encounters Encounter Location Date [facility] [address] [place] [address] 04/27/2025 Mio Smiley Acute constipation K59.00 and Overweight (BMI 25.0-29.9) E66.3 [facility] [address] [place] [address] 05/05/2025 Pia Garrick Encounter for screening for COVID-19 Z11.52 ; COVID-19 U07.1 and Negative depression screening Z13.31 Assessments Encounter Date Diagnosis (ICD Code) Assessment Notes Treatment Notes Treatment Clinical Notes Section Notes 04/27/2025 Acute constipation (ICD-10 - K59.00) Constipation now resolved. Plans to eat high fiber, increase water intake to maintain symptoms. Visit summary given to and discussed with patient and/or parent who verbalizes understanding and agreement with plan of care., Constipation: Care Instructions material was published 04/27/2025 Overweight (BMI 25.0-29.9) (ICD-10 - E66.3) Continue healthy eating and exercise. May follow up with [facility] dietitians via a telehealth visit at [email or web address] to help with dietary changes to lower BMI., Learning About Obesity material was published 05/05/2025 COVID-19 (ICD-10 - U07.1) Instructed patient to have good respiratory hygiene by covering coughs and sneezes, hand washing and cleaning high-touch surfaces. Patient may return to normal activities when symptoms have been improving and patient has been fever free for 24 hours without the use of fever reducing medication., Coronavirus (COVID-19): Care Instructions material was published 05/05/2025 Encounter for screening for COVID-19 (ICD-10 - Z11.52) 05/05/2025 Negative depression screening (ICD-10 - Z13.31) Plan Of Treatment No Information Insurance Providers Payer Name Payer Address Payer Phone Subscriber Number Group Number Insured Name Patient Relationship to Insured Coverage Start Date Coverage End Date [facility] [address] [place] [address] [id number] [place] Natural Child - Insured has Financial Responsibility Medical (General) History Medical History History ICD Code History of rapid onset pneumonia x 3 robert es one time with collapsed lung Anxiety F41.9 Surgical History Surgery Date(Month/Year) removal of ear tubes 2008 ear tubes 2004 Hospitalization History Reason Date(Month/Year) as above
--- NOTE | 2025-07-14 17:21 | XR_ITS ---
PROCEDURE INFORMATION: Exam: XR Abdomen Exam date and time: 07/14/2025 5:12 PM Age: 19 years old Clinical indication: Other: Assessment of fecal burden TECHNIQUE: Imaging protocol: Radiologic exam of the abdomen. Views: Frontal supine view of the abdomen. 1 View. COMPARISON: No relevant prior studies available. FINDINGS: Gastrointestinal tract: Relatively small stool burden in the colon and rectum. Organs: There is an intrauterine device in the pelvis. Bones/joints: Unremarkable. IMPRESSION: Relatively small stool burden in the colon and rectum. No acute findings.
== END 2025-07-14 23:59 | disposition home or self-care (01) ==
LOC: RAD 17:08
PROVIDERS: PCP Pediatrics; Visit Provider Internal Medicine Gastroenterology
DX: K59.00 Constipation, unspecified (principal)
CPT/HCPCS: 74018

== ENCOUNTER 2025-07-16 09:12 | Day surgery (SDC) | payer BC, SELFPAY ==
--- NOTE | 2025-07-14 07:43 | EXP.HP ---
History of Present Illness *Admission Date: 07/16/25 *History of present illness: Ms. Sharma is a 19-year-old female who is here for diagnostic EGD. The patient primarily reports having the feeling of something in her throat/globus sensation. This has worsened over the summer months. When this was at its worst, she would not eat and she lost 30 pounds. This would make her feel very nauseated but she is afraid to vomit. She reports that this is not tightness of her throat but the feeling of liquid in her throat all the time. She reports no choking or frequent throat clearance. She does state that this makes her feel nauseated. She does have moderate belching. She reports no bloating but does get some bloating with certain foods. She did begin omeprazole [id number] earlier in the summer that helped with her reflux. The patient reports no abdominal pain. She does state that she has regular bowel function. She sometimes has obstipation/incomplete defecation and her mother states that she complained of some constipation not long ago. She previously had dyspepsia in the past and had seen me in October 2016 for EGD and esophageal dilation. At that time she was having epigastric discomfort, bloating, belching and early satiety. She also had symptoms of globus and occasional swallowing difficulties. She had frequent clearance of the throat with mucus accumulation. Her EGD had shown nonerosive GERD with mild esophageal dysmotility and cricopharyngeal spasm. She also had bile reflux with linear reactive gastropathy. Biopsies of the stomach and duodenum showed some mild chronic gastritis and her duodenal biopsies were normal with no evidence of celiac. The examination is deemed medically necessary for diagnostic EGD. The patient has been seen, interviewed and examined prior to the procedure by both myself and the anesthesia provider. [facility] Disclaimer: The information contained in this section may have been updated after the patient was seen, as this information can be updated by other users. Medical History Endometriosis OCD (obsessive compulsive disorder) Anxiety and depression Surgical History History of hip surgery Family History Grandmother Colon cancer Grandfather Colon cancer Social History (Updated 07/16/25 @ 10:35 by Megan Allison RN) Smoking Status: Never smoker alcohol intake: never substance use type: denies use current occupational status: employed Travel in the last 8 weeks?: None Have you lived/traveled outside US in past 30 days?: No Contact w/someone who lives/traveled outside US past 30 days?: No Exposure to someone with infectious disease in past 14 days?: No Do you have a fever (greater than 100.4 F or 38 C)?: No Have you tested positive for COVID-19?: No Exposed to someone with COVID-19 in past 14 days?: No Do you have a sore throat?: No Do you have a cough?: No Do you have any weakness?: No Do you have any diarrhea?: No Are you experiencing any unusual bleeding?: No Do you have any muscle aches/pain?: No Do you have any abdominal pain?: No Are you experiencing loss of taste or smell?: No Review of Systems Review of Systems Review of systems (narrative): Negative *Cardiovascular Comments: Negative *Gastrointestinal Comments: Negative *Genitourinary Comments: Negative *Musculoskeletal Comments: Negative *Neurologic Comments: Negative Meds Home Medications and Allergies Home Medications ?Medication ?Instructions ?Recorded ?Confirmed ?Type fluoxetine 20 mg capsule 20 mg PO DAILY 05/12/25 07/16/25 History hydroxyzine HCl 25 mg tablet 10 mg PO DAILY PRN Anxiety 05/12/25 07/16/25 History omeprazole 20 mg capsule,delayed 20 mg PO DAILY 05/12/25 07/16/25 History release New Prescriptions to Start Prescriptions: Allergies Allergy/AdvReac Type Severity Reaction Status Date / Time Penicillins Allergy Rash Verified 07/16/25 10:29 Exam *Routine HEENT Exam Head: Present normocephalic Eye: Present EOMI and PERRL ENT: Present mucous membranes moist *Routine Neck Exam Neck: Present supple *Routine Respiratory Exam Respiratory: Present CTA bilaterally *Routine Cardiovascular Exam Cardiovascular: Present RRR *Routine Abdominal Exam Abdominal: Present soft and normoactive bowel sounds; Absent tenderness *Routine Rectal Exam Rectal:: deferred *Routine Genitalia Exam Genitalia:: deferred *Routine Extremities Exam Extremities: Absent cyanosis, clubbing or edema *Routine Skin Exam Skin: Present warm; Absent rash *Routine Neurological Exam Neurological: Present alert and oriented X3 Assessment and Plan *Assessment and plan (1) Globus sensation: Status: Acute Category: Medical Code(s): R09.A2 - Foreign body sensation, throat (2) Belching: Status: Acute Category: Medical Code(s): R14.2 - Eructation (3) Nausea: Status: Acute Category: Medical Code(s): R11.0 - Nausea Plan A/P: 1. Globus sensation, belching and nausea is the preprocedural diagnosis. The patient will be anesthetized/sedated using MAC sedation. The patient has been seen and examined. Cardiac and lung assessment prior to the examination is stable. Proceed with planned diagnostic EGD.
[2025-07-15 16:19] VITALS: BMI 24.2
--- NOTE | 2025-07-16 06:56 | P.PCN_ITS ---
[facility] Procedure Note Date: 07/16/25 Time: 12:06 Procedure Note:: Upper Endoscopy Procedure Report: Esophagogastroduodenoscopy with cold biopsies and TTS balloon dilation Endoscopost: Chivo Gasca II, MD Referring Physician: Bunny Steele MD ([facility]) Date of Procedure: July 16, 2025 Equipment: Olympus GIF-1100 standard upper endoscope Sedation: MAC sedation Indications: Ms. Sharma is a 19-year-old female who is here for diagnostic EGD. The patient primarily reports having the feeling of something in her throat/globus sensation. This has worsened over the summer months. When this was at its worst, she would not eat and she lost 30 pounds. This would make her feel very nauseated but she is afraid to vomit. She reports that this is not tightness of her throat but the feeling of liquid in her throat all the time. She reports no choking or frequent throat clearance. She does state that this makes her feel nauseated. She does have moderate belching. She reports no bloating but does get some bloating with certain foods. She did begin omeprazole [id number] earlier in the summer that helped with her reflux. The patient reports no abdominal pain. She does state that she has regular bowel function. She sometimes has obstipation/incomplete defecation and her mother states that she complained of some constipation not long ago. She previously had dyspepsia in the past and had seen me in October 2016 for EGD and esophageal dilation. At that time she was having epigastric discomfort, bloating, belching and early satiety. She also had symptoms of globus and occasional swallowing difficulties. She had frequent clearance of the throat with mucus accumulation. Her EGD had shown nonerosive GERD with mild esophageal dysmotility and cricopharyngeal spasm. She also had bile reflux with linear reactive gastropathy. Biopsies of the stomach and duodenum showed some mild chronic gastritis and her duodenal biopsies were normal with no evidence of celiac. The examination is deemed medically necessary for diagnostic EGD. Procedure: Prior to the procedure, a history and physical exam was performed, and patient's medications and allergies were reviewed. The risks, benefits and alternatives of the sedation and procedure were discussed with the patient. All questions were answered and informed consent was obtained. The patient was brought to the procedure room. Patient identification and proposed procedure were verified by the physician and the nurse. The patient was placed in a left lateral decubitus position and the scope was passed under direct vision. Throughout the procedure, the patient's blood pressure, pulse, and oxygen saturations were monitored continuously. The upper GI endoscopy was accomplished without difficulty. The patient tolerated the procedure well. Findings: The scope was passed directly into the upper esophagus and advanced to the third portion of the duodenum. The post bulbar duodenum and duodenal bulb were normal with normal mucosa and conniventes. 2 cold biopsies were taken from the second portion of the duodenum for the disaccharidase assay. Cold biopsies were taken from the duodenal bulb for celiac disease. The scope was withdrawn through a normal duodenal bulb and pylorus into the stomach. There was very mild linear antral gastropathy. The body and fundus of the stomach were grossly normal. Upon retroflexion there was no hiatal hernia. The scope was then withdrawn into the esophagus. There was no evidence of reflux esophagitis or Cameron's. There was no ring, stricture, corrugation or furrowing. There were tertiary contractions and evidence of mild esophageal dysmotility. There was no inlet patch. The entire esophagus was dilated to 60 Mos[place]o/20 mm with a TTS hydrostatic balloon. There was mild resistance at the cricopharyngeus. The remainder of the esophageal mucosa was normal. Impression: 1. Cricopharyngeal spasm 2. Nonerosive GERD with mild esophageal dysmotility 3. Mild linear antral gastropathy Plan: I will follow-up the biopsies and disaccharidase assay and discussed the findings with the patient and family. We will discuss treatment options.
[2025-07-16 10:26] VITALS: BMI 24.2
[2025-07-16 10:30] VITALS: BP 132/73; PULSE 69; RESP 16; TEMP 36.1; O2SAT 100; BMI 24.2
[2025-07-16 10:35] LABS: Urine Pregnancy, HCG Qual. Negative (Negative)
[2025-07-16] MEDS: LACTATED RINGERS 1000ML 1,000 ML 50 ML IV (10:41)
--- NOTE | 2025-07-16 10:51 | EXP.ANES.CKL ---
[facility] Disclaimer: The information contained in this section may have been updated after the patient was seen, as this information can be updated by other users. Medical History Endometriosis OCD (obsessive compulsive disorder) Anxiety and depression Surgical History History of hip surgery Family History Grandmother Colon cancer Grandfather Colon cancer Social History (Updated 07/16/25 @ 10:35 by Megan Allison RN) Smoking Status: Never smoker alcohol intake: never substance use type: denies use current occupational status: employed Travel in the last 8 weeks?: None Have you lived/traveled outside [place] in past 30 days?: No Contact w/someone who lives/traveled outside [place] past 30 days?: No Exposure to someone with infectious disease in past 14 days?: No Do you have a fever (greater than 100.4 F or 38 C)?: No Have you tested positive for COVID-19?: No Exposed to someone with COVID-19 in past 14 days?: No Do you have a sore throat?: No Do you have a cough?: No Do you have any weakness?: No Do you have any diarrhea?: No Are you experiencing any unusual bleeding?: No Do you have any muscle aches/pain?: No Do you have any abdominal pain?: No Are you experiencing loss of taste or smell?: No [facility] Anesthesia Checklist Patient Identification Patient Identification: Arm Band Structural Data Admitted From: Home Planned Operative Procedure/s: EGD Consent for Planned Operative Procedure(s) Verified: Yes Verified Documents: Surgical Consent and History and Physical NPO Status Verified Time NPO: 00:00 Additional verifications Anesthesia Reactions: No Airway Assessment Mallampati Score:: Class II C-Spine Mobility Assessed: Yes TMJ Mobility Assessed: Yes Dentition: Good Dentition Neurological Assessment Level of Consciousness: Awake, Alert and Appropriate Anesthesia Plan Anesthesia Risk discussed: Yes Anesthesia Plan: Verified ASA Class: I Anesthesia Type: General
[2025-07-16 12:06] VITALS: BP 116/76; PULSE 71; RESP 16; TEMP 36.1; O2SAT 100
[2025-07-16 12:16] VITALS: BP 124/67; PULSE 77; RESP 18; O2SAT 100
[2025-07-16 12:26] VITALS: BP 129/92; PULSE 78; RESP 18; O2SAT 100
[2025-07-16 12:27] VITALS: BP 122/86; PULSE 71; RESP 18; O2SAT 99
[2025-07-21 12:44] LABS: Interpretation Notes (.); Lactase 26.97 (>/= 14.0); Maltase 103.69 (>/= 110.0); Palatinase 8.41 (>/= 8.5); Reference Notes (.); Sucrase 25.92 (>/= 25.0)
== END 2025-07-16 12:28 | disposition home or self-care (01) ==
PROVIDERS: PCP Pediatrics; Visit Provider Internal Medicine Gastroenterology
PROC: 0DJ08ZZ Inspection of Upper Intestinal Tract, Via Natural or Artificial Opening Endoscopic (ICD-10-PCS; CPT 43239; principal; 2025-07-16 11:00)
DX: K90.0 Celiac disease (principal); K22.4 Dyskinesia of esophagus; K21.9 Gastro-esophageal reflux disease without esophagitis; K31.89 Other diseases of stomach and duodenum; Z88.0 Allergy status to penicillin
CPT/HCPCS: 43239; 43249; 81025; 82657; C1726; J2003; J2704; J7120